=== PATIENT | male | born 1975 | race Caucasian/White ===

== ENCOUNTER 2017-01-19 14:50 | Emergency (ER) | payer SELFPAY ==
[~2017-01-19] VITALS: Ht 175.3 cm; Wt 64.5 kg
[2017-01-19 14:54] VITALS: BP 132/76
[2017-01-19] MEDS ORDERED: LIDODERM 5% P1 PATCH TD (16:04)
[2017-01-19] MEDS ORDERED: FLEXERIL10 MG PO (16:04)
[2017-01-19] MEDS ORDERED: NAPROSYN500 MG PO (16:04)
== END 2017-01-19 16:21 | disposition home or self-care (01) ==
LOC: EME 14:50
DX: S29.012A Strain of muscle and tendon of back wall of thorax, initial encounter (principal); X50.0XXA Overexertion from strenuous movement or load, initial encounter; M62.830 Muscle spasm of back; M54.5 Low back pain; M25.552 Pain in left hip; Y99.0 Civilian activity done for income or pay; Z98.1 Arthrodesis status; F17.200 Nicotine dependence, unspecified, uncomplicated
CPT/HCPCS: 99281; 99283; J1885